=== PATIENT | male | born 2000 | race Hispanic/Latino ===

== ENCOUNTER 2021-02-26 04:35 | Emergency (ER) | payer SELFPAY ==
[2021-02-26 04:54] VITALS: BP 134/98
--- NOTE | 2021-02-26 06:30 | Cat Scan Report ---
Examination: CT of the head without contrast Clinical information: Fall. Trauma 2 days ago. Comparison: None Technical: Multiple axial CT images of the head were obtained without intravenous contrast. Sagittal and coronal reformats were obtained. All CTs at this facility utilize dose reduction techniques inc luding automated exposure control, iterative reconstruction and weight based dosing when appropriate to reduce patient radiation dose to as low as reasonable achievable. Findings: INTRACRANIAL CONTENTS: There is no CT evidence of acute intracranial hemorrhage or large territorial infarct. The ventricular system is normal in size. There is no mass effect or midline shift. SKULL: No acute bony abnormality is visualized. ORBITS: The bilateral orbits and globes appear normal PARANASAL SINUSES / MASTOID AIR CELLS: Paranasal sinuses and mastoid air cells appear clear. Impression: 1. No CT evidence of acute intracranial process. Signer Name: Jazlyn Ware MD Signed: 02/26/2021 6:26 AM Workstation Name: [id number]
--- NOTE | 2021-02-26 06:33 | Cat Scan Report ---
CT MAXILLOFACIAL WITHOUT CONTRAST INDICATION / CLINICAL INFORMATION: Fall. Trauma. Hit right eye 2 days ago. TECHNIQUE: All CT scans at this location are performed using CT dose reduction for ALARA by means of automated e xposure control. COMPARISON: CT of the head without contrast, 02/26/2021 FINDINGS: FACIAL BONES: No fracture or other significant abnormality. PARANASAL SINUSES: No significant abnormality. ORBITS: No significant abnormality. VISUALIZED INTRACRANIAL STRUCTURES: No significant abnormality. ADDITIONAL FINDINGS: None. IMPRESSION: 1. No CT evidence of acute facial trauma. Signer Name: Jazlyn Ware MD Signed: 02/26/2021 6:28 AM Workstation Name: [id number]
== END 2021-02-26 07:00 ==
LOC: ED 04:35
DX: H57.11 Ocular pain, right eye (principal); R22.0 Localized swelling, mass and lump, head; Z53.21 Procedure and treatment not carried out due to patient leaving prior to being seen by health care provider
CPT/HCPCS: 70450; 70486

== ENCOUNTER 2021-02-26 15:00 | Emergency (ER) | payer SELFPAY ==
[2021-02-26 17:10] VITALS: BP 131/85
[2021-02-26] MEDS ORDERED: TETRACAINE 0.5% OPHTH SOLN 4ML OU ONE (18:06)
[2021-02-26] MEDS ORDERED: FLUORESCEIN 1 MG STRIP OP ONE (18:06)
--- NOTE | 2021-02-26 18:10 | Event Note ---
ED Screening Note Date of service: 02/26/21 Time: 18:07 ED Screening Note: 20-year-old male patient presents to the emergency department with complaints of traumatic right eye pain starting 2 days ago. Patient states he struck his right eye against the corner of the table wall. Since the injury occurred, patient has noticed blurred vision and significant redness to the right eye. General: Awake, appropriately interactive, no acute distress. Eyes: Pupils equal and round. Extraocular movements painful but intact. Diffuse scleral injection with defect noted to the right sclera at approximately 3 o'clock position. Neck: Supple. Full range of motion intact. Cardiovascular: Normal peripheral perfusion. Pulmonary: No respiratory distress. Patient is speaking normally without use of accessory muscles. Skin: No apparent rashes or lesions. Neurological: No facial asymmetry. Speech is clear. Follows commands. Patient is alert and oriented. Musculoskeletal: Moves all four extremities spontaneously with normal range of motion. Psych: Cooperative. Appropriate mood and affect. Of note, patient underwent CT of the head/face in the emergency department yesterday, but eloped prior to receiving radiology results. I have greeted and performed a focused rapid initial assessment of this patient. A comprehensive ED assessment and evaluation of the patient, analysis of all test results, and completion of the medical decision-making process will be conducted by additional ED providers. This initial assessment/diagnostic orders/clinical plan/treatment(s) is/are subject to change based on patients health status, clinical progression and re-assessment. Further treatment and workup at subsequent clinical provider's discretion. Patient/guardian urged not to elope from the ED as their condition may be serious if not clinically assessed and managed.
--- NOTE | 2021-02-26 20:24 | Emergency Department Report ---
ED General Adult HPI - General Chief complaint: Eye Problems Stated complaint: EYE INJURY PUI?: No Time Seen by Provider: 02/26/21 20:03 Source: patient Mode of arrival: Ambulatory Limitations: No Limitations - History of Present Illness Initial comments: 20-year-old Indian male [facility] emerge department complaining of pain to the right which was sustained after a trip and fall and striking the corner of a table around his right orbital region. After the fall there was some redness of the eye noted and some scant bleeding and some dull throbbing pain which is continue to linger off and on since since the onset. He was initially seen and evaluated in the emergency department earlier today but he had eloped. CT scans were obtained of the or of the of the orbits and the head with no acute traumatic injuries noted. He reports some blurred blurred vision and photophobia reports no headaches no fevers chills sweats, no neck pain no nausea vomiting no chest pain palpitations. - Related Data Previous Rx's Medication Instructions Recorded Last Taken Type Ketorolac Tromethamin 0.4%(Nf) 1 drop OP QID #1 bottle 02/26/21 Unknown Rx [Acular Ls 0.4% Ophth Lary] Tobramycin [Tobrex] 1 drop OP Q4H #1 bottle 02/26/21 Unknown Rx Allergies Allergy/AdvReac Type Severity Reaction Status Date / Time No Known Allergies Allergy Unverified 02/26/21 04:55 ED Review of Systems ROS: Stated complaint: EYE INJURY Other details as noted in HPI Comment: All other systems reviewed and negative ED Past Medical Hx - Past Medical History Previous Medical History?: No - Surgical History Past Surgical History?: No - Social History Smoking Status: Current Every Day Smoker Substance Use Type: Marijuana, Methamphetamines - Medications Home Medications: Home Medications Medication Instructions Recorded Confirmed Last Taken Type Ketorolac Tromethamin 0.4%(Nf) 1 drop OP QID #1 bottle 02/26/21 Unknown Rx [Acular Ls 0.4% Ophth Lary] Tobramycin [Tobrex] 1 drop OP Q4H #1 bottle 02/26/21 Unknown Rx ED Physical Exam - General Limitations: No Limitations General appearance: alert, in no apparent distress - Head Head exam: Present: atraumatic, normocephalic, other (Plan is to repair a orbital lesion with some some ecchymosis) - Eye Eye exam: Present: normal appearance, PERRL, conjunctival injection, periorbital tenderness. Absent: nystagmus Pupils: Present: other (Increased fluorescein uptake to the right suggestive of a corneal abrasion.) - Expanded Eye Exam Expanded Eyelids: Swelling: Right Pupils: Regular, Round: Bilateral, Reactive: Bilateral Sclera/Conjunctival: Normal Inspection: Right, Injection: Right, Hemorrhage: Right Posterior chamber: Normal Inspection: Bilateral Visual acuity (R) = 20/: 30 Visual acuity (L) = 20/: 25 With correction: No - ENT ENT exam: Present: normal exam, mucous membranes moist - Neck Neck exam: Present: normal inspection - Respiratory Respiratory exam: Present: normal lung sounds bilaterally. Absent: respiratory distress - Cardiovascular Cardiovascular Exam: Present: regular rate, normal rhythm. Absent: systolic murmur, diastolic murmur, rubs, gallop - GI/Abdominal GI/Abdominal exam: Present: soft, normal bowel sounds - Rectal Rectal exam: Present: deferred - Extremities Exam Extremities exam: Present: normal inspection, normal capillary refill - Back Exam Back exam: Present: normal inspection - Neurological Exam Neurological exam: Present: alert, oriented X3 - Psychiatric Psychiatric exam: Present: normal affect, normal mood - Skin Skin exam: Present: warm, dry, intact, normal color. Absent: rash ED Course Vital Signs 02/26/21 17:08 Temperature 98 F Pulse Rate 104 H Respiratory 16 Rate Blood Pressure 131/85 [Right] O2 Sat by Pulse 98 Oximetry ED Medical Decision Making - Radiology Data Radiology results: report reviewed [address] [place] [address] Cat Scan Report Signed Patient: TAMMY MEANS MR#: [id number] 8 : 2000 Acct:[id number] Age/Sex: 20 / M ADM Date: 02/26/21 Loc: ED Attending Dr: Ordering Physician: SUNSHINE HUMPHREY III, MD Date of Service: 02/26/21 Procedure(s): CT facial bones wo con Accession Number(s): [id number] cc: SUNSHINE HUMPHREY III, MD CT MAXILLOFACIAL WITHOUT CONTRAST INDICATION / CLINICAL INFORMATION: Fall. Trauma. Hit right eye 2 days ago. TECHNIQUE: All CT scans at this location are performed using CT dose reduction for ALARA by means of automated exposure control. COMPARISON: CT of the head without contrast, 02/26/2021 FINDINGS: FACIAL BONES: No fracture or other significant abnormality. PARANASAL SINUSES: No significant abnormality. ORBITS: No significant abnormality. VISUALIZED INTRACRANIAL STRUCTURES: No significant abnormality. ADDITIONAL FINDINGS: None. IMPRESSION: 1. No CT evidence of acute facial trauma. Signer Name: Jazlyn Ware MD Signed: 02/26/2021 6:28 AM Workstation Name: [id number] Transcribed By: CHRISTINE Dictated By: Jazlyn Ware MD Electronically Authenticated By: Jazlyn Ware MD Signed Date/Time: 02/26/21627 DD/ 5 TD/TT: [facility] [address] [place] [address] Cat Scan Report Signed Patient: TAMMY MEANS MR#: [id number] 8 : 2000 Acct:[id number] Age/Sex: 20 / M ADM Date: 02/26/21 Loc: ED Attending Dr: Ordering Physician: SUNSHINE HUMPHREY III, MD Date of Service: 02/26/21 Procedure(s): CT head/brain wo con Accession Number(s): [id number] cc: SUNSHINE HUMPHREY III, MD Examination: CT of the head without contrast Clinical information: Fall. Trauma 2 days ago. Comparison: None Technical: Multiple axial CT images of the head were obtained without intravenous contrast. Sagittal and coronal reformats were obtained. All CTs at this facility utilize dose reduction techniques including automated exposure control, iterative reconstruction and weight based dosing when appropriate to reduce patient radiation dose to as low as reasonable achievable. Findings: INTRACRANIAL CONTENTS: There is no CT evidence of acute intracranial hemorrhage or large territorial infarct. The ventricular system is normal in size. There is no mass effect or midline shift. SKULL: No acute bony abnormality is visualized. ORBITS: The bilateral orbits and globes appear normal PARANASAL SINUSES / MASTOID AIR CELLS: Paranasal sinuses and mastoid air cells appear clear. Impression: 1. No CT evidence of acute intracranial process. Signer Name: Jazlyn Ware MD Signed: 02/26/2021 6:26 AM Workstation Name: [id number] Transcribed By: CHRISTINE Dictated By: Jazlyn Ware MD Electronically Authenticated By: Jazlyn Ware MD Signed Date/Time: 02/26/21625 DD/ 2 TD/TT: Critical care attestation.: If time is entered above; I have spent that time in minutes in the direct care of this critically ill patient, excluding procedure time. ED Disposition Clinical Impression: Corneal abrasion, right, Periorbital contusion of right eye, Subconjunctival hemorrhage of right eye Disposition: DC- TO HOME OR SELFCARE Is pt being admited?: No Does the pt Need Aspirin: No Condition: Stable Instructions: How to Use Cold Therapy, [id number], Eye Contusion, [id number], Corneal Abrasion Prescriptions: Ketorolac Tromethamin 0.4%(Nf) [Acular Ls 0.4% Ophth Lary] 1 drop OP QID #1 bottle Tobramycin [Tobrex] 1 drop OP Q4H #1 bottle Referrals: [facility] [Provider Group] - 3-5 Days [facility] [Primary Care Provider] - 3-5 Days
== END 2021-02-26 20:50 | disposition home or self-care (01) ==
LOC: ED 15:00
DX: S05.11XA Contusion of eyeball and orbital tissues, right eye, initial encounter (principal); S05.01XA Injury of conjunctiva and corneal abrasion without foreign body, right eye, initial encounter; H11.31 Conjunctival hemorrhage, right eye; F17.200 Nicotine dependence, unspecified, uncomplicated; F12.90 Cannabis use, unspecified, uncomplicated; F15.90 Other stimulant use, unspecified, uncomplicated; Z79.899 Other long term (current) drug therapy; W01.0XXA Fall on same level from slipping, tripping and stumbling without subsequent striking against object, initial encounter; Y93.89 Activity, other specified; Y92.89 Other specified places as the place of occurrence of the external cause; Y99.8 Other external cause status
CPT/HCPCS: 99283

== ENCOUNTER 2022-05-22 00:52 | Emergency (ER) | payer SELFPAY ==
[2022-05-22 02:21] LABS: Color,Urine Colorless (Yellow)
[2022-05-22 02:22] LABS: RBC,Urine < 1.0 /HPF (0.0-6.0); WBC,Urine < 1.0 /HPF (0.0-6.0)
[2022-05-22] MEDS ORDERED: ONDANSETRON 4 MG ODT TAB PO ONE (09:37)
[2022-05-22] MEDS ORDERED: KETOROLAC 10 MG TAB PO ONE (09:37)
[2022-05-22] MEDS ORDERED: oxyCODONE /ACETAMINOPHEN 5-325MG TAB PO ONE (09:37)
--- NOTE | 2022-05-22 10:10 | Cat Scan Report ---
CT ABDOMEN AND PELVIS WITHOUT CONTRAST HISTORY: right flank pain COMPARISON: None. TECHNIQUE: Axial CT images were obtained through the abdomen and pelvis without IV contrast. Sagittal and coronal reformatted images. All CT scans at this location are performed using CT dose reduction for ALARA by means of automated exposure control. FINDINGS: CT ABDOMEN: Lung Bases: Clear. Liver: No significant abnormality. Biliary: No significant abnormality. Spleen: No significant abnormality. Unenlarged. Pancreas: No significant abnormality. Adrenals: No significant abnormality. Kidneys: There is a punctate calyceal stones in the right kidney near mid pole on axial image 83. No additional nephrolithiasis. No cystic disease, obvious mass or hydronephrosis. The ureters are normal course and caliber. Lymphatics: No lymphadenopathy. Vasculature: No significant abnormality. Bowel/Peritoneum: No significant abnormality. No free air. No free fluid. Normal appendix. CT PELVIS: : No significant abnormality. Osseous Structures: No significant abnormality. Additional Findings: None IMPRESSION: Punctate nonobstructing right renal stone as described. No hydronephrosis. Otherwise unremarkable exam. Signer Name: Akbar Mccormack Jr, MD Signed: 05/22/2022 10:05 AM Workstation Name: [id number]
--- NOTE | 2022-05-22 10:27 | Emergency Department Report ---
ED Abdominal Pain HPI - General Chief Complaint: Abdominal Pain Stated Complaint: FLANK PAIN/LOWER BACK PAIN Time Seen by Provider: 05/22/22 09:04 Source: patient Mode of arrival: Ambulatory Limitations: No Limitations - History of Present Illness Initial Comments: 22-year-old white male with no past medical history presents to the emergency department for evaluation of right flank and lower back pain for 2 weeks. He states that for the past 2 days pain has been significantly worse and associated with some intermittent nausea. He denies vomiting, fever, hematuria, and penile discharge. He states that he has had some dysuria. MD Complaint: abdominal pain, flank pain -: Gradual, week(s) (2) Location: RLQ, R flank Radiation: none Migration to: no migration Severity: severe Severity scale (0 -10): 8 Quality: cramping, aching Consistency: intermittent Associated Symptoms: nausea, dysuria. denies: vomiting, diarrhea, fever, chills, hematemesis, hematochezia, melena, hematuria, anorexia, syncope - Related Data Previous Rx's Medication Instructions Recorded Last Taken Type Ketorolac Tromethamin 0.4%(Nf) 1 drop OP QID #1 bottle 02/26/21 Unknown Rx [Acular Ls 0.4% Ophth Lary] Tobramycin [Tobrex] 1 drop OP Q4H #1 bottle 02/26/21 Unknown Rx Acetaminophen/Codeine [Tylenol 1 tab PO Q6H PRN #12 tab 05/22/22 Unknown Rx /Codeine # 3 tab] Ketorolac [Toradol] 10 mg PO Q6H PRN #12 tab 05/22/22 Unknown Rx Ondansetron [Zofran Odt] 4 mg PO Q8HR PRN #12 tab.rapdis 05/22/22 Unknown Rx Allergies Allergy/AdvReac Type Severity Reaction Status Date / Time No Known Allergies Allergy Unverified 02/26/21 04:55 ED Review of Systems ROS: Stated complaint: FLANK PAIN/LOWER BACK PAIN Other details as noted in HPI Comment: All other systems reviewed and negative Constitutional: denies: chills, fever ENT: denies: congestion Respiratory: denies: shortness of breath Cardiovascular: denies: chest pain, palpitations Gastrointestinal: abdominal pain. denies: nausea, vomiting, diarrhea, hematemesis, melena, hematochezia Genitourinary: dysuria. denies: urgency, frequency, hematuria, discharge Musculoskeletal: back pain Neurological: denies: headache, weakness ED Past Medical Hx - Past Medical History Previous Medical History?: No - Surgical History Past Surgical History?: No - Social History Smoking Status: Never Smoker - Medications Home Medications: Home Medications Medication Instructions Recorded Confirmed Last Taken Type Ketorolac Tromethamin 0.4%(Nf) 1 drop OP QID #1 bottle 02/26/21 Unknown Rx [Acular Ls 0.4% Ophth Lary] Tobramycin [Tobrex] 1 drop OP Q4H #1 bottle 02/26/21 Unknown Rx Acetaminophen/Codeine [Tylenol 1 tab PO Q6H PRN #12 tab 05/22/22 Unknown Rx /Codeine # 3 tab] Ketorolac [Toradol] 10 mg PO Q6H PRN #12 tab 05/22/22 Unknown Rx Ondansetron [Zofran Odt] 4 mg PO Q8HR PRN #12 tab.rapdis 05/22/22 Unknown Rx ED Physical Exam - General Limitations: No Limitations General appearance: alert, in no apparent distress - Head Head exam: Present: atraumatic, normocephalic - Eye Eye exam: Present: normal appearance. Absent: conjunctival injection - Neck Neck exam: Present: normal inspection, full ROM. Absent: tenderness, lymphadenopathy - Respiratory Respiratory exam: Present: normal lung sounds bilaterally. Absent: respiratory distress, wheezes, rales, rhonchi, stridor, chest wall tenderness - Cardiovascular Cardiovascular Exam: Present: tachycardia, normal heart sounds - GI/Abdominal GI/Abdominal exam: Present: soft, tenderness (Right lower quadrant), normal bowel sounds. Absent: distended, guarding, rebound, rigid - Extremities Exam Extremities exam: Present: normal inspection, full ROM, normal capillary refill. Absent: tenderness, pedal edema, joint swelling, calf tenderness - Back Exam Back exam: Present: normal inspection, tenderness (Right lower), CVA tenderness (R). Absent: CVA tenderness (L), paraspinal tenderness, vertebral tenderness - Neurological Exam Neurological exam: Present: alert, oriented X3, CN II-XII intact, normal gait - Psychiatric Psychiatric exam: Present: normal affect, normal mood - Skin Skin exam: Present: warm, dry, intact, normal color ED Course Vital Signs 05/22/22 01:08 Temperature 98.6 F Pulse Rate 115 H Respiratory 18 Rate Blood Pressure 151/102 O2 Sat by Pulse 99 Oximetry ED Medical Decision Making - Radiology Data Radiology results: report reviewed, image reviewed CT abdomen pelvis without contrast: FINDINGS: CT ABDOMEN: Lung Bases: Clear. Liver: No significant abnormality. Biliary: No significant abnormality. Spleen: No significant abnormality. Unenlarged. Pancreas: No significant abnormality. Adrenals: No significant abnormality. Kidneys: There is a punctate calyceal stones in the right kidney near mid pole on axial image 83. No additional nephrolithiasis. No cystic disease, obvious mass or hy dronephrosis. The ureters are normal course and caliber. Lymphatics: No lymphadenopathy. Vasculature: No significant abnormality. Bowel/Peritoneum: No significant abnormality. No free air. No free fluid. Normal appendix. CT PELVIS: : No significant abnormality. Osseous Structures: No significant abnormality. Additional Findings: None IMPRESSION: Punctate nonobstructing right renal stone as described. No hydronephrosis. Otherwise unremarkable exam. - Medical Decision Making 22-year-old white male with no past medical history presents to the emergency department for evaluation of right flank and lower back pain for 2 weeks. He states that for the past 2 days pain has been significantly worse and associated with some intermittent nausea. He denies vomiting, fever, hematuria, and penile discharge. He states that he has had some dysuria. CT scan positive for right kidney stone. Urine unremarkable. Patient will be discharged home with Toradol, Tylenol 3, and Zofran to use as directed. He is advised to follow-up with urology for further evaluation and management and return to the emergency department as needed. He verbalizes understanding of and agreement with plan of care. Critical care attestation.: If time is entered above; I have spent that time in minutes in the direct care of this critically ill patient, excluding procedure time. ED Disposition Clinical Impression: Kidney stones Disposition: HOME / SELF CARE / HOMELESS Is pt being admited?: No Does the pt Need Aspirin: No Condition: Stable Instructions: Kidney Stones, [id number], Dietary Guidelines to Help Prevent Kidney Stones Additional Instructions: Take medications as prescribed. Follow-up with urology for further evaluation and management. Return to the emergency department as needed. Prescriptions: Ketorolac [Toradol] 10 mg PO Q6H PRN #12 tab PRN Reason: Pain Acetaminophen/Codeine [Tylenol /Codeine # 3 tab] 1 tab PO Q6H PRN #12 tab PRN Reason: Pain , Severe (7-10) Ondansetron [Zofran Odt] 4 mg PO Q8HR PRN #12 tab.rapdis PRN Reason: Nausea And Vomiting Referrals: ARIC ELENA MD [Staff Physician] - 3-5 Days ROSALEE CLEMONS MD [Staff Physician] - 3-5 Days Forms: Work/School Release Form(ED) Time of Disposition: 10:29
[2022-05-22 11:08] VITALS: BP 128/94
== END 2022-05-22 11:09 | disposition home or self-care (01) ==
LOC: ED 00:52
DX: N20.0 Calculus of kidney (principal)
CPT/HCPCS: 74176; 81001; 99284; J3490; Q0162